=== PATIENT | male | born 1945 | race Caucasian/White ===

== ENCOUNTER 2020-02-13 11:36 | Outpatient (CLI) | payer MEDICARE, OTHER, SELFPAY ==
--- NOTE | 2020-02-13 11:42 | USCV_ITS ---
Jason Goodman Age: 74 Gender: M : 1945 Exam Date: 02/13/2020 12:06 Ordering Phys: Harvey Baires DO Technologist: Katja Carbajal [place] [facility] [place]: VISION PROBLEMS. PT UNSURE WHICH OR WHAT Risk Factors: Unknown Previous Vascular Surgery: None Right Brachial BP: / Left Brachial BP: / Right Left Velocity (cm/s) Spectral Plaque Velocity (cm/s) Spectral Plaque Syst/Diast Broadening Syst/Diast Broadening 70.60/ 15.40 Prox CCA 52.30 / 12.40 71.70/ 18.70 Hetro Mid CCA 59.70 / 19.90 Hetro 55.70/ 18.30 Hetro Distal CCA 56.40 / 21.60 Hetro 75.10/ 16.50 Hetro Prox ICA 66.50 / 13.90 Hetro 56.80/ 15.30 Hetro Mid ICA 50.00 / 14.60 55.60/ 19.80 Distal ICA 60.80 / 21.60 96.80 Hetro ECA 98.30 Hetro 1.05 ICA/CCA 1.11 Antegrade Vertebral Antegrade 47.90/ 13.40 cm/s 54.30/ 16.40 cm/s Tri Subclavian Bi 74.70 105.2 0 FINDINGS Moderate heterogeneous irregular plaques bilaterally at the bifurcations and proximal internal jugular arteries. Intimal thickening and minimal plaques in the common carotid arteries bilaterally. Antegrade flow in the vertebral arteries bilaterally. Normal Doppler flow velocities in the subclavian arteries bilaterally CONCLUSIONS Moderate heterogeneous irregular plaques bilaterally at the bifurcations and proximal internal jugular arteries suggestive of 16 to 49% stenosis. Intimal thickening and minimal plaques in the common carotid arteries bilaterally. No previous studies are available for comparison. Dr Lisa Black MD [facility] (Electronically Signed) Final Date: 13 Feb 2020 14:09 S
== END 2020-02-13 11:37 | disposition home or self-care (01) ==
PROVIDERS: Visit Provider Electrodiagnostic Medicine
DX: I65.23 Occlusion and stenosis of bilateral carotid arteries (principal); H53.10 Unspecified subjective visual disturbances; E03.9 Hypothyroidism, unspecified; E11.51 Type 2 diabetes mellitus with diabetic peripheral angiopathy without gangrene; E78.5 Hyperlipidemia, unspecified; I73.9 Peripheral vascular disease, unspecified; Z95.0 Presence of cardiac pacemaker; I25.10 Atherosclerotic heart disease of native coronary artery without angina pectoris; R01.1 Cardiac murmur, unspecified; F17.210 Nicotine dependence, cigarettes, uncomplicated
CPT/HCPCS: 93880

== ENCOUNTER 2023-01-19 13:51 | Outpatient (CLI) | payer OTHER, SELFPAY ==
--- NOTE | 2023-01-19 14:08 | USCV_ITS ---
Jason Goodman Age: 77 Gender: M : 1945 Exam Date: 01/19/2023 14:36 Ordering Phys: Shelby Stevens MD Technologist: JOSLYN [place] [facility] [place]: Bruit Risk Factors: Previous Vascular Surgery: Right Brachial BP: / Left Brachial BP: / Right Left Velocity (cm/s) Spectral Plaque Velocity (cm/s) Spectral Plaque Syst/Diast Broadening Syst/Diast Broadening 60.90/ 16.00 Prox CCA 74.90 / 17.70 72.10/ 17.10 Mid CCA 72.20 / 19.40 51.30/ 15.00 Distal CCA 105.60/ 26.40 54.90/ 16.40 Prox ICA 89.60 / 19.40 63.70/ 19.60 Mid ICA 70.20 / 23.60 71.90/ 26.50 Distal ICA 64.30 / 25.90 91.30 ECA 111.90 1.00 ICA/CCA 0.85 Antegrade Vertebral Antegrade 44.40/ 13.70 cm/s 51.70/ 24.60 cm/s Tri Subclavian Bi 86.30 63.00 CONCLUSIONS Right ICA stenosis <50%. Moderate calcified atheromatous plaque right carotid bulb/ICA. Left ICA stenosis <50%. Moderate calcified atheromatous plaque left carotid bulb/ICA. Normal antegrade Doppler flow noted in the right vertebral artery. Normal antegrade Doppler flow noted in the left vertebral artery. Sammy Pérez MD (Electronically Signed) Final Date: 19 January 2023 16:10 S
--- NOTE | 2023-01-19 14:08 | USR_ITS ---
PROCEDURE INFORMATION: Exam: US Duplex Lower Extremity Arteries Exam date and time: 01/19/2023 2:55 PM Age: 77 years old Clinical indication: Pain; Foot; Bilateral; Additional info: Claudication TECHNIQUE: Imaging protocol: Real-time ultrasound scan of the arteries of the bilateral lower extremities with 2-D crockett scale, color Doppler flow and spectral waveform analysis. Images documented and saved. COMPARISON: No relevant prior studies available. FINDINGS: Right iliac and common femoral artery: No occlusion or significant stenosis. Monophasic waveform. Right superficial femoral artery: No occlusion or significant stenosis. Monophasic waveform. Right popliteal artery: No occlusion or significant stenosis. Monophasic waveform. Right calf/foot arteries: No occlusion or significant stenosis in the visualized arteries. Monophasic waveforms. Dorsalis pedis artery is patent. Left iliac and common femoral artery: No occlusion or significant stenosis. Biphasic within the iliac artery and monophasic within the common femoral artery. Left superficial femoral artery: No occlusion or significant stenosis. Monophasic waveform. Left popliteal artery: No occlusion or significant stenosis. Monophasic waveform. Left calf/foot arteries: No occlusion or significant stenosis in the visualized arteries. Monophasic waveforms. Dorsalis pedis artery is patent. JAGUAR is 0.55 on the right and 0.56 on the left. US/[place] [id number] IMPRESSION: 1. Predominant monophasic arterial waveforms bilaterally suggesting significant runoff disease, without significant systolic velocity elevation to indicate hemodynamically significant focal stenosis without occlusion. 2. JAGUAR of 0.55 on the right and 0.56 on the left, which also suggest significant or severe runoff disease bilaterally.
--- NOTE | 2023-01-19 14:08 | CT_ITS ---
WS: [id number] CT HEAD TECHNIQUE: Noncontrast CT of the head obtained from the skullbase to the vertex. CLINICAL INFORMATION: MEMORY PROBLEMS COMPARISON: None. DLP: 1299.[address] scans at [facility] use at least one of these dose optimization techniques: automated e xposure control; mA and/or kV adjustment per patient size (includes targeted exams where dose is matc hed to clinical indication); or iterative reconstruction. FINDINGS: No evidence of intracranial hemorrhage or mass effect. Ventricular system and basal cisterns are morel nt. Mild small vessel changes with moderate parenchymal volume loss. No extra-axial fluid collections . Vascular calcification. Mastoid air cells are well aerated. Intracranial vascular calcification. Fluid within the paranasal s inuses. Air-fluid level in the RIGHT frontal sinus. CT/CT head wo con* [id number] IMPRESSION: 1. No evidence of intracranial hemorrhage or mass effect. 2. Mild small vessel changes with moderate parenchymal volume loss. Parenchyma l volume loss slightly progressed since 2019 3. Intracranial vascular calcification. 4. Paranasal sinusitis with air-fluid levels. 5. Mastoid air cells well aerated. 6. No acute intracranial findings.
== END 2023-01-19 13:52 | disposition home or self-care (01) ==
LOC: RAD 13:53
PROVIDERS: PCP Electrodiagnostic Medicine; Visit Provider Family Medicine
DX: I65.23 Occlusion and stenosis of bilateral carotid arteries (principal); I70.213 Atherosclerosis of native arteries of extremities with intermittent claudication, bilateral legs
CPT/HCPCS: 70450; 93880; 93925

== ENCOUNTER → 2023-04-12 15:00 | Outpatient (BNVA) | payer OTHER, SELFPAY | PROVIDERS: PCP Family Medicine; Visit Provider Thoracic Surgery (Cardiothoracic Vascular Surgery) | DX: I73.9 Peripheral vascular disease, unspecified (principal) | CPT/HCPCS: 99203 ==

== ENCOUNTER 2023-05-03 10:14 | Outpatient (CLI) | payer OTHER, SELFPAY ==
[2023-05-03] MEDS: iohexol 350 mg/mL 500 mL Btl (per mL) IV (10:30)
--- NOTE | 2023-05-03 10:30 | CTR_ITS ---
PROCEDURE INFORMATION: Exam: CTA Abdominal Aorta and Bilateral Lower Extremities (Run-off) With Contrast Exam date and time: 05/03/2023 10:56 AM Age: 78 years old Clinical indication: Bilat leg pain TECHNIQUE: Imaging protocol: Computed tomographic angiography of the of the abdominal aorta, pelvis and bilateral lower extremities with contrast. 3D rendering (Not supervised by radiologist): MIP and/or 3D reconstructed images were created by the technologist. Radiation optimization: All CT scans at this facility use at least one of these dose optimization techniques: automated exposure control; mA and/or kV adjustment per patient size (includes targeted exams where dose is matched to clinical indication); or iterative reconstruction. Contrast material: OMNI 350; Contrast volume: 100 ml; Contrast route: INTRAVENOUS (IV); REPORTING DATA: Count of CT and Cardiac NM exams in prior 12 months: This patient has received [address] and 0 known cardiac nuclear medicine studies in the 12 months prior to the current study. COMPARISON: CT chest wo con [id number] 01/10/2019 8:34 AM RADIATION DOSE METRICS: Total DLP (mGy-cm): 1078.31 FINDINGS: Aorta: There is severe aortic atherosclerotic disease. There is fusiform dilation of the infrarenal abdominal aorta measuring up to 3.3 cm diameter. No dissection or aortic luminal narrowing. Celiac trunk and mesenteric arteries: Moderate calcific plaque with less than 50% stenosis of the superior mesenteric artery origin. No significant stenosis at the celiac artery origin. Inferior mesenteric artery is patent. Renal arteries: There is a web-like stenosis at the origin of the right renal artery. The degree of stenosis cannot be accurately measured. The left renal artery demonstrates no stenosis. Right iliac arteries: Marked calcific plaque with near occlusion at the origin of the right common iliac artery. Marked calcific plaque with near occlusion at the origin of the right internal iliac artery. Moderate calcific plaque with multifocal less than 50% stenosis in the right external iliac artery. Right femoral/popliteal arteries: Moderate calcific plaque with less than 50% stenosis in the right common femoral artery. Right profundus femoris artery is patent. Less than 50% stenosis at the origin of the right superficial femoral artery. Extensive calcific plaque throughout the right superficial femoral artery with multifocal 50-60% stenosis. There is a short segment of greater than 70% stenosis in the distal superficial femoral artery. Just above the knee there is near occlusion of the distal superficial femoral artery. See series 4, image 760. There is severe calcific plaque with multifocal near occlusion of the right popliteal artery. Right infrapopliteal arteries: There is 50-60% stenosis of the right tibioperoneal trunk. There is severe calcific plaque in the anterior tibial artery limiting assessment of patency. Contrast is seen in the vessel distally and in the dorsalis pedis artery. The peroneal artery is patent. The posterior tibial artery is occluded. Left iliac arteries: Marked calcific plaque with greater than 70% stenosis of the left common iliac artery origin. Near occlusion at the origin of left internal iliac artery. Multifocal less than 50% stenosis in the left external iliac artery. Left femoral/popliteal arteries: Moderate calcific plaque with less than 50% stenosis of the left common femoral artery. Less than 50% stenosis at the origin of the left superficial femoral artery. Extensive calcific plaque in the superficial femoral artery with multifocal 50-60% stenosis proximally. There is multifocal greater than 70% stenosis in the distal superficial femoral artery and near occlusion just above the knee. The left profundus femoris artery is patent. Multifocal near occlusion of the left popliteal artery. Left infrapopliteal arteries: The left dorsalis pedis artery is patent. The anterior tibial artery is intermittently occluded. The posterior tibial artery is occluded. The peroneal artery is patent. Veins: The portal, splenic and superior mesenteric veins are patent. Lungs: Minimal subpleural reticular opacity and atelectasis in the lung bases. There is a calcified granuloma in the right middle lobe. Liver: The liver is normal. Gallbladder and bile ducts: The gallbladder is normal. There is no biliary dilation. Pancreas: The pancreas is unremarkable. Spleen: The spleen is unremarkable. Adrenal glands: The adrenal glands are unremarkable. Kidneys and ureters: There are simple cysts in the right kidney. There is no hydronephrosis or stones. The left kidney and ureter are unremarkable. Stomach and bowel: The stomach is decompressed, preventing meaningful evaluation of wall thickness. The small bowel is nondilated. The colon is unremarkable. Appendix: The appendix is normal. Urinary bladder: The urinary bladder is decompressed, preventing meaningful evaluation of wall thickness. Reproductive: The prostate and seminal vesicles are unremarkable. Intraperitoneal space: There is no free air or significant intraperitoneal free fluid. Lymph nodes: There is no lymphadenopathy in the retroperitoneum, mesentery, pelvis or inguinal regions. Bones/joints: There is mild degenerative disease in the lumbar spine. Prominent bilateral acetabular osteophytes. Pelvis and proximal femora are intact. Soft tissues: There are moderate-sized bilateral fat containing inguinal hernias. CT/CT angio abd aorta runof [id number] IMPRESSION: 1. Severe peripheral arterial atherosclerotic disease in the lower extremities bilaterally with near occlusion of both distal femoral and popliteal arteries at multiple sites. 2. Near occlusion at the origin of the right common iliac artery. 3. Greater than 70% stenosis at the origin of the left common iliac artery. 4. Severe infrapopliteal atherosclerotic disease bilaterally with occlusion of the left anterior and posterior tibial arteries and right posterior tibial artery with patent peroneal arteries bilaterally. 5. 3.3 cm fusiform infrarenal abdominal aortic aneurysm.Follow-up imaging in 3 years is recommended. 6. Web-like stenosis at the right renal artery origin. The degree of stenosis cannot be accurately measured. 7. Incidental findings above.
[2023-05-03 10:57] LABS: Blood Urea Nitrogen 8 mg/dL (8-23)
== END 2023-05-03 10:15 | disposition home or self-care (01) ==
PROVIDERS: PCP Family Medicine; Visit Provider Thoracic Surgery (Cardiothoracic Vascular Surgery)
DX: M79.606 Pain in leg, unspecified (principal)
CPT/HCPCS: 75635; 82565; 84520; Q9967

== ENCOUNTER → 2023-05-16 13:44 | Outpatient (BNVA) | payer OTHER, SELFPAY | PROVIDERS: PCP Family Medicine; Referring Provider Family Medicine; Visit Provider Dermatology | DX: L82.1 Other seborrheic keratosis (principal); L81.4 Other melanin hyperpigmentation; L57.8 Other skin changes due to chronic exposure to nonionizing radiation; L73.8 Other specified follicular disorders; L57.0 Actinic keratosis | CPT/HCPCS: 17000; 17003; 99203 ==

== ENCOUNTER → 2023-06-21 13:47 | Outpatient (BNVA) | payer OTHER, SELFPAY | PROVIDERS: PCP Family Medicine; Visit Provider Internal Medicine | DX: R07.9 Chest pain, unspecified (principal); Z95.0 Presence of cardiac pacemaker; E11.9 Type 2 diabetes mellitus without complications; Z95.1 Presence of aortocoronary bypass graft; I73.9 Peripheral vascular disease, unspecified; I27.20 Pulmonary hypertension, unspecified; I45.9 Conduction disorder, unspecified; F17.210 Nicotine dependence, cigarettes, uncomplicated | CPT/HCPCS: 93005; 99214 ==

== ENCOUNTER 2023-07-02 06:09 | Outpatient (CLI) | payer OTHER, SELFPAY ==
[2023-07-02] VITALS (12 sets, daily range): BP systolic 111–148; BP diastolic 52–79; PULSE 60–87; RESP 13–20; TEMP 36.8; O2SAT 90–96; BMI 30.1
--- NOTE | 2023-07-02 06:00 | XACV_ITS ---
Ht: 175 cm Wt: 93 kg BSA: 2.15 m2 Any Known Allergies: Penicillins Gender: Male : 1945 Exam Type: Invasive Peripheral Vascular Procedure(s): Procedure Description: Peripheral Cath Diagnostic Procedure Procedure Description: Abdominal aortic angiography Procedure Description: Lower extremities' angiography Exam Priority: Routine Abdominal Diagnostic Findings Distal abdominal aorta: Patent, aneurysmal. Lower Extremity Diagnostic Findings INDICATION: Severe bilateral lifestyle limiting claudication. Right lower extremity findings: Right common iliac artery is heavily calcified and severe 95% stenosis. Right external iliac artery is patent. Right internal iliac artery is patent. Right common femoral artery is patent. Distal right SFA has severe serial stenoses. Proximal popliteal artery has severe. 90% calcified stenosis. Distal popliteal artery is patent. Two-vessel runoff with patent peroneal artery and anterior tibial artery.. Left lower extremity findings: Left common iliac artery has calcified 80 % stenosis. Left external iliac artery is patent. Left internal iliac artery is patent. Left common femoral artery is patent. Has very high bifurcation of the profunda and SFA. SFA is patent. Distal SFA has severe, calcified 90%. Popliteal artery has severe 70-80% stenosis. Posterior tibial artery is occluded. Peroneal artery is patent. Distal anterior tibial artery is occluded. Conclusions Severe bilateral peripheral artery disease. We will have discussion with Dr Irizarry (surgeon) to plan surgical revascularization vs performing percutaneous revascularization of inflow and treat rest medically. Recommendations Aggressive risk factor modification. Smoking cessation recommended. Follow up visit in 7-10 days. Hemodynamic Data Phase:Rest AO : 131.0 / 55.0 ( 84.0 ) @ 9:32:00 AM 107.0 / 58.0 ( 80.0 ) @ 9:44:00 AM 124.0 / 51.0 ( 80.0 ) @ 9:48:00 AM Access Site Site: Left Femoral artery Sheath Size: 6 Fr Hemost... Method: Mynx Hemost... Success: Successful Procedure Details Findings Procedure Consent Obtained. Pre-Procedure Time Out. Identified patient by full name and date of as verbalized by the patient/guarantor. Does the consent match the physician's order: Yes. Accurate & Complete Informed Consent: Yes. Inpatient/Outpatient History & Physical on Chart: Yes. If H&P is completed, is and addenduem needed: No. Visualize and Verify Site with Patient/Guarantor: N/A. Relevant Radiology Images available: Yes. The risks, benefits, and alternatives of sedation and/or procedure were discussed by physician. The patient agrees to continue. Procedure started. Correct patient, site and procedure confirmed by cath team. Current diagnosis: PVD. PERRLA. Strong, equal hand car wash attendant bilaterally. Lungs clear x 5 lobes. IV Site on Arrival: 20 gauge in the left anticubital. IV Fluids: 0.9% NaCl at KVO. 0 mL infused prior to labor relations officer. Pre Procedural Pulses: bilateral dorsalis pedis was 1+. Pre Procedural Pulses: bilateral posterior tibial was 1+. Oxygen started at 2liters/min via nasal canula. bilateral groins was prepped with chloroprep then draped in the usual sterile fashion. Physician notified. Baseline sample Acquired. HR: 65 BPM. Patient's daughter in CPRU room #4. Dr. Novak will update at the completion of the procedure. Equipment: 6F - Femoral. Cardiac Cath Pack. ACIST Manifold Kit Model BT 2000. Heparinized Saline (2 units/mL), 1000 mL bag. Kit, Micropuncture. Physician arrived. Physician scrubbed in. Immediate Pre-Procedure Time Out. Correct Patient: Yes; Correct Procedure: Yes; Correct Site: Yes; Correct Patient Position: Yes; Correct Supplies: Yes Dried Flammable Prep: Yes; Blood Products Available: N/A;. Lidocaine 1% infiltrated to the left groin. Arterial access obtained with micropuncture set with Ultrasound guidance. A 5Fr UF catheter in over the glidewire. Pigtail postioned above the bifurcation of the iliacs. Aortagram performed @ 10 mL/sec for a total of 30 mL. Pigtail postioned above the bifurcation of the iliacs. Aortagram performed @ 10 mL/sec for a total of 20 mL in DSA to better visualize the iliacs. Glidewire in through the UF. Glidewire out. Right common iliac selected and arteriogram with runoff performed @ 10 mL/sec for a total of 30 mL. Right common iliac selected and arteriogram with runoff performed @ 10 mL/sec for a total of 30 mL. Right common iliac selected and arteriogram with runoff performed @ 10 mL/sec for a total of 30 mL in DSA. UF Catheter removed over the standard wire. Sheath injected in Left common femoral artery and runoff performed. A Left femoral angiogram was performed to determine safe placement of closure device. A Mynx was successful obtaining hemostatsis at the Left Femoral artery insertion site. ot# [id number]. Exp. 2025-06-07. No signs or symptoms of hematoma noted. Sterile dressing applied per usual sterile fashion. Post Procedure: Pulses reassessed and unchanged. PERRLA. Strong, equal hand car wash attendant bilaterally. No VTE prophylaxis required. Medication's Wasted: Heparin = 1000 Units. Medication's Wasted: Other = Versed 1 mg. Medication's Wasted: Other = Fentanyl 50 mcg. Total IV fluids: 54 mL. Post-op diagnosis: Severe bilateral PVD. Complications: none. Estimated blood loss: 5mL-10mL. Responsiveness - Normal response to verbal stimuli; alert and oriented, PERRLA. Airway - Unaffected, no intervention required; spontaneous ventilation. Circulation: W/N/L, pulses unchanged. Nausea/Vomiting: No. Procedure completed. Patient transferred by bed to CPRU. Vital chart was stopped. Procedure Medications Start: 8:17 AM Stop: 8:17 AM Medication: Versed Amount: 1 mg Route: I.V. Start: 8:17 AM Stop: 8:17 AM Medication: Fentanyl Amount: 50 mcg Route: I.V. I, the attending physician, have reviewed and verified all procedure medications. Yes, all medications given per verbal order History/Risk Factors Hypertension: No Dyslipidemia: No Peripheral Arterial Disease (PAD): Yes Obesity: Yes Renal Disease: No Tobacco Use: Current/Recent(w/in 1 year) Prior Interventions PCI: No CABG: No Valve Surgery: No Report Signatures Finalized by Jorge Novak MD on 07/08/2023 11:07 AM
[2023-07-02] MEDS: diphenhydrAMINE 50 mg Capsule PO (06:30)
[2023-07-02 06:56] LABS: Basophils # 0.1 10^3/uL (0.0-0.1); Basophils % 1.2 %; Eosinophils # 0.2 10^3/uL (0.0-0.8); Eosinophils % 4.1 %; Hematocrit 38.5 % (37-53); Mean Corpuscular HGB Conc 31.4 g/dL (30-55); Mean Corpuscular Hemoglobin 26.5 pg (27-33); Mean Corpuscular Volume 84.2 fl (82-101); Mean Platelet Volume 9.8 fL (7.4-10.4); Monocytes # 0.6 10^3/uL (0.2-0.9); Monocytes % 10.2 %; Neutrophils % 67.1 %; Nucleated Red Blood Cells % 0 %; Platelet Count 189 10^3/cmm (157-399); Red Blood Count 4.57 10^6/uL (3.85-5.65); Red Cell Distribution Width 17.7 % (12.1-15.1); White Blood Count 5.66 10^3/uL (3.29-11.43)
[2023-07-02 07:05] LABS: Glucose Point of Care 161 mg/dL (70-110)
[2023-07-02 07:20] LABS: Anion Gap 13.8 (5-19); Blood Urea Nitrogen 16 mg/dL (8-23); Calcium 8.5 mg/dL (8.5-10.5); Carbon Dioxide 25 mmol/L (22-29); Chloride 104 mmol/L (98-107); Glucose 154 mg/dL (65-115); Osmolality Calculated 292 mOsm/kg (285-295); Potassium 3.8 mmol/L (3.5-5.1); Sodium 139 mmol/L (136-145)
--- NOTE | 2023-07-02 08:11 | W.PM.OPSUD ---
Surgery/Procedure H&P Update DATE OF PROCEDURE: July 02, 2023 DATE H&P PERFORMED: 06/21/23 H&P UPDATE INFORMATION: I have reviewed H&P completed within last 30 days, I have examined patient prior to procedure and No changes to prior documentation PREOP DIAGNOSIS: Severe bilateral lifestyle limiting claudication PRIMARY INDICATION FOR PROCEDURE: Severe bilateral lifestyle limiting claudication PLANNED PROCEDURE: Operation Date: 07/02/23 07:00 Proposed Procedures p Periph Angiogram 57963,I73.9(Not Applicable) - Jorge Novak M.D Possible intervention PATIENT REASSESSED PRIOR TO SEDATION, WITH NO CHANGE NOTED: Yes PHYSICAL EXAM: alert, oriented x 3, clear to auscultation bilaterally and regular rate & rhythm AIRWAY EVAL/ANESTHESIA PLAN: normal airway, ASA III, Local Anesthesia, Risks, benefits & alternatives of sedation and/or procedure discussed and Patient agrees to continue as planned ADDITIONAL INFORMATION: Moderate sedation
--- NOTE | 2023-07-02 09:05 | SUR.PHASEI ---
Addendum entered by Sandro Francisco RN 07/02/23 09:27: Access is left femoral not the right side. Original Note: POST CATH NOTE Received patient from the medical laboratory specialist. Patient has a dressing to the right groin. Sheath removed in cath and closed with MYNX closure device. Site is hemostatic with no s/s of active bleeding. VSS and assessments per flowsheet. Call light in reach. MD in to discuss findings with patient and family. Verbal post cath instructions went over with the patient/family. They understood well. Informed to call for needs.
--- NOTE | 2023-07-02 09:05 | SUR.PHASEI ---
POST OF IV FLUIDS SET AT 100 ML/HR ORDERED POST CATH. IVF is 0.9% NS.
--- NOTE | 2023-07-02 10:23 | PC.NURSE ---
Patient comes from dental laboratory supervisor at 0957. Left peripheral site is dry and intact. No hematoma noted.
== END 2023-07-02 17:16 | disposition home or self-care (01) ==
LOC: CCL 06:10 → CSU 13:47
PROVIDERS: PCP Family Medicine; Visit Provider Internal Medicine
DX: I70.213 Atherosclerosis of native arteries of extremities with intermittent claudication, bilateral legs (principal); I25.10 Atherosclerotic heart disease of native coronary artery without angina pectoris; Z95.1 Presence of aortocoronary bypass graft; F17.210 Nicotine dependence, cigarettes, uncomplicated; E11.9 Type 2 diabetes mellitus without complications; Z79.84 Long term (current) use of oral hypoglycemic drugs; Z82.49 Family history of ischemic heart disease and other diseases of the circulatory system; E66.9 Obesity, unspecified; Z68.30 Body mass index [BMI] 30.0-30.9, adult
CPT/HCPCS: 36415; 36416; 75625; 75716; 80048; 82962; 85025; 96365; 99152; 99153; C1760; C1769; C1887; C1894; G0378; J1644; J2250; J3010; J7030; Q0163; Q9967

== ENCOUNTER 2023-07-23 06:02 | Outpatient (CLI) | payer OTHER, SELFPAY ==
[2023-07-23] VITALS (68 sets, daily range): BP systolic 80–122; BP diastolic 46–80; PULSE 60–108; RESP 2–21; TEMP 36.4–37; O2SAT 86–95; BMI 30.1
[2023-07-23 06:34] LABS: Glucose Point of Care 165 mg/dL (70-110)
[2023-07-23] MEDS: diphenhydrAMINE 50 mg Capsule PO (06:45)
[2023-07-23 06:47] LABS: Basophils # 0.1 10^3/uL (0.0-0.1); Basophils % 0.9 %; Eosinophils # 0.2 10^3/uL (0.0-0.8); Eosinophils % 3.2 %; Hematocrit 38.5 % (37-53); Lymphocytes # 1.1 10^3/uL (0.8-4.8); Mean Corpuscular HGB Conc 30.9 g/dL (30-55); Mean Corpuscular Hemoglobin 27.4 pg (27-33); Mean Corpuscular Volume 88.7 fl (82-101); Mean Platelet Volume 9.9 fL (7.4-10.4); Monocytes # 0.5 10^3/uL (0.2-0.9); Monocytes % 7.7 %; Neutrophils # 4.98 10^3/uL (1.8-7.7); Neutrophils % 71.9 %; Nucleated Red Blood Cells % 0 %; Platelet Count 224 10^3/cmm (157-399); Red Blood Count 4.34 10^6/uL (3.85-5.65); White Blood Count 6.92 10^3/uL (3.29-11.43)
--- NOTE | 2023-07-23 07:00 | XACV_ITS ---
Exam Room: [facility] Ht: 175 cm Wt: 93 kg BSA: 2.15 m2 Gender: Male : 1945 Any Known Allergies: Penicillins Exam Priority: Routine Procedure(s): Procedure Description: Diagnostic procedure Procedure Description: Peripheral Cath Diagnostic Procedure Procedure Description: Iliac arterial aortic angiography Procedure Description: Peripheral vascular Intervention Procedure Description: PV Balloon Procedure Description: PV Stent Procedure Description: Miscellaneous Procedure Description: ACT Abdominal Diagnostic Findings Distal abdominal aorta is patent. Lower Extremity Diagnostic Findings This is a staged procedure for bilateral severe common iliac artery stenosis revascularization. Left Common Iliac Artery: Severe 80% stenosis. Right Common Iliac Artery: Severe heavily calcified, 95% stenosis. For full diagnostic report, please refer to procedure from 07/02/2023. INDICATION: Severe lifestyle limiting claudication. Lower Extremity Interventional Findings PROCEDURE DETAIL: We obtained bilateral common femoral artery access. IV heparin was administered to maintain anticoagulation. We crossed the severe right common iliac artery stenosis with a command wire and performed intravascular lithotripsy with a 8.0 shockwave balloon. This was followed by performing shockwave lithotripsy of the left common iliac artery. We then performed simultanoues kissing stent placement in the bilateral iliac arteries. These were 8.0x37mm Lifestream covered stents. On the right side there was some underexpansion of the stent and we post dilated it with a 10.0x40mm [place] balloon. At this time final angiogram showed excellent stent expansion and no residual stenosis. Patient left the culture media laboratory assistant in a stable condition. Left Common Iliac Artery: 80% stenosis treated with Shockwave M5 8.0mm x 125cm and Bard LifeStream 8.0mm x 37mm Balloon Expandable Vascular Covered Stent. Right Common Iliac Artery: 95% stenosis treated with Shockwave M5 8.0mm x 135cm, Bard LifeStream 8.0mm x 37mm Balloon Expandable Vascular Covered Stent, and AB [place] 35 ENROLLMENT REPRESENTATIVE Catheter [id number] OTW. Conclusions Severe bilateral common iliac artery stenoses s/p revascularization with intravascular lithotripsy using shockwave balloon and kissing covered stent placement in right and left common iliac arteries. Left common iliac artery was treated with a Balloon, and Stent. Right common iliac artery was treated with a Balloon, Stent, and Balloon. There is significant bilateral lower extremity disease. Left Common Iliac Artery was treated with Balloon and Stent. Right Common Iliac Artery was treated with two Balloon and Stent. Recommendations Dual antiplatelet therapy with aspirin and plavix. Outpatient cardiology follow up in 2 weeks. Pressures Phase:Rest AO : 143 / 72 ( 97 ) @ 9:09:00 AM 84 / 39 ( 54 ) @ 9:28:00 AM 79 / 34 ( 53 ) @ 9:40:00 AM 93 / 45 ( 64 ) @ 9:49:00 AM Hemodynamic Data Phase:Rest AO : 143.0 / 72.0 ( 97.0 ) @ 9:09:00 AM 84.0 / 39.0 ( 54.0 ) @ 9:28:00 AM 79.0 / 34.0 ( 53.0 ) @ 9:40:00 AM 93.0 / 45.0 ( 64.0 ) @ 9:49:00 AM Clinical Evaluation EBL: 5mL-10mL Procedural Details Procedure Consent Obtained. Pre-Procedure Time Out. Identified patient by full name and date of as verbalized by the patient/guarantor. Does the consent match the physician's order: Yes. Accurate & Complete Informed Consent: Yes. Inpatient/Outpatient History & Physical on Chart: Yes. If H&P is completed, is and addenduem needed: Yes; If yes, is the addendum complete: Yes. Visualize and Verify Site with Patient/Guarantor: N/A. Relevant Radiology Images available: Yes. The risks, benefits, and alternatives of sedation and/or procedure were discussed by physician. The patient agrees to continue. Current diagnosis: PVD. PERRLA. Strong, equal hand cement mixer driver bilaterally. Lungs clear x 5 lobes. IV Site on Arrival: 20 gauge in the left forearm. IV Fluids: 0.9% NaCl at KVO. 0 mL infused prior to culture media laboratory assistant. Pre Procedural Pulses: bilateral dorsalis pedis was Absent. Pre Procedural Pulses: bilateral posterior tibial was Absent. Pre Procedural Pulses: bilateral radial was 2+. Oxygen started at 2liters/min via nasal canula. bilateral groins was prepped with chloroprep then draped in the usual sterile fashion. Procedure started. Correct patient, site and procedure confirmed by cath team. Physician notified. Baseline sample Acquired. HR: 81 BPM. Patient's family in CPRU room #3. Dr. Novak will update at the completion of the procedure. Equipment: 6F - Femoral. Cardiac Cath Pack. ACIST Manifold Kit Model BT 2000. Heparinized Saline (2 units/mL), 1000 mL bag. Kit, Micropuncture X 2. 7 fr sheath X 2. Physician arrived. Physician scrubbed in. Immediate Pre-Procedure Time Out. Correct Patient: Yes; Correct Procedure: Yes; Correct Site: Yes; Correct Patient Position: Yes; Correct Supplies: Yes; Dried Flammable Prep: Yes; Blood Products Available: N/A;. Lidocaine 1% infiltrated to the right groin. Arterial access obtained with micropuncture set. Lidocaine 1% infiltrated to the left groin. Arterial access obtained with micropuncture set. Side port of sheath attached to tranducer for arterial blood pressures as the NIPB is not working properly. A 5Fr UF catheter in OTW on the left. Pigtail postioned above the bifurcation of the iliacs. Aortagram performed @ 10 mL/sec for a total of 30 mL. 0.035 260cm stiff angled glidewire in through the UF catheter. Catheter removed over the glide wire. Command 0.014 x 300cm guidewire in through the UF catheteron the left. Add inventory: Endoflator x 2. UF catheter out OTW. Command 0.014 x 300cm guidewire in through the sheath on the right. Inflation number : 1 A Shockwave M5 8.0mm x 135cm was prepped and advanced across the Common Iliac, Right , then inflated to 4 MALCOM for 0:24 seconds. Inflation number: 2 The Shockwave M5 8.0mm x 135cm was reinflated across the Common Iliac, Right, to 4 MALCOM for 0:28 seconds. Inflation number: 3 The Shockwave M5 8.0mm x 135cm was reinflated across the Common Iliac, Right, to 4 MALCOM for 0:28 seconds. Inflation number: 4 The Shockwave M5 8.0mm x 135cm was reinflated across the Common Iliac, Right, to 4 MALCOM for 0:27 seconds. Inflation number: 5 The Shockwave M5 8.0mm x 135cm was reinflated across the Common Iliac, Right, to 4 MALCOM for 0:29 seconds. Shockwave balloon out. Inflation number : 1 A Shockwave M5 8.0mm x 125cm was prepped and advanced across the Common Iliac, Left , then inflated to 4 MALCOM for 0:29 seconds. Inflation number: 2 The Shockwave M5 8.0mm x 125cm was reinflated across the Common Iliac, Left, to 0 MALCOM for 0:24 seconds. Inflation number: 3 The Shockwave M5 8.0mm x 125cm was reinflated across the Common Iliac, Left, to 4 MALCOM for 0:26 seconds. Shockwave balloon out. ACT drawn. Results 210 seconds. Therapeutic limits - pre-heparin administration 90-150 seconds and monitoring heparin during a vascular procedure >250 seconds. Inflation Number : 6 A Bard LifeStream 8.0mm x 37mm Balloon Expandable Vascular Covered Stent -Lot Number# [id number] was prepped and advanced across the Common Iliac, Right. The stent was deployed at 12 MALCOM for 1:30 seconds. Exp. 2025-07-07. Inflation Number : 4 A Bard LifeStream 8.0mm x 37mm Balloon Expandable Vascular Covered Stent -Lot Number# [id number] was prepped and advanced across the Common Iliac, Left. The stent was deployed at 12 MALCOM for 1:30 seconds. Exp. 2025-07-07. Bilateral stent balloons out. A 5Fr UF catheter in OTW on the left. Command wire out on the left. Pigtail postioned above the bifurcation of the iliacs. Aortagram performed @ 10 mL/sec for a total of 30 mL in DSA. Pigtail postioned above the bifurcation of the iliacs. Aortagram performed @ 10 mL/sec for a total of 20 mL. Inflation number : 7 A AB [place] 35 ENROLLMENT REPRESENTATIVE Catheter [id number] OTW was prepped and advanced across the Common Iliac, Right , then inflated to 4 MALCOM for 1:04 seconds. Balloon out. Pigtail postioned above the bifurcation of the iliacs. Aortagram performed @ 10 mL/sec for a total of 20 mL. Pigtail postioned above the bifurcation of the iliacs. Aortagram performed @ 10 mL/sec for a total of 20 mL in DSA. Command wire out on the right. ACT drawn. Results 285 seconds. Therapeutic limits - pre-heparin administration 90-150 seconds and monitoring heparin during a vascular procedure >250 seconds. UF catheter out OTW on the left. A Left femoral angiogram was performed to determine safe placement of closure device. Dr. Novak scrubbed out. A Suture was successful obtaining hemostatsis at the Right Femoral artery insertion site. A Suture was successful obtaining hemostatsis at the Left Femoral artery insertion site. Sheath(s) sutured into position with 2-0 silk and sterile 4x4's and Op-site applied over the site. No oozing or signs and symptoms of hematoma noted. Arterial sheath x 2 flushed and connected to tranducer and pressure bag with heparinized saline. PERRLA. Strong, equal hand cement mixer driver bilaterally. No VTE prophylaxis required. Medication's Wasted: Heparin = 3000 units. Total IV fluids: 335 mL. Complications: none. Post-op diagnosis: Bilateral Common Iliac disease s/p Peripheral Lithotripsy and covered stents. Estimated blood loss: 5mL-10mL. Responsiveness - Normal response to verbal stimuli; alert and oriented, PERRLA. Airway - Unaffected, no intervention required; spontaneous ventilation. Circulation: W/N/L, pulses unchanged. Nausea/Vomiting: No. Procedure completed. Patient transferred by bed to CPRU. Vital chart was stopped. Access Site Site: Right Femoral artery Sheath Size: 7 Fr Hemostasis Method: Suture Hemostasis Success: Successful Site: Left Femoral artery Sheath Size: 7 Fr Hemostasis Method: Suture Hemostasis Success: Successful Procedure Medications Start: 7:59 AM Stop: 7:59 AM Medication: 0.9% Saline Amount: 250 ml Route: I.V. bolus Start: 8:10 AM Stop: 8:10 AM Medication: Versed Amount: 1 mg Route: I.V. Start: 8:10 AM Stop: 8:10 AM Medication: Fentanyl Amount: 50 mcg Route: I.V. Start: 8:13 AM Stop: 8:13 AM Medication: Versed Amount: 1 mg Route: I.V. Start: 8:13 AM Stop: 8:13 AM Medication: Fentanyl Amount: 50 mcg Route: I.V. Start: 8:28 AM Stop: 8:28 AM Medication: Heparin Amount: 6000 units Route: I.V. Start: 8:30 AM Stop: 8:30 AM Medication: Heparin Amount: 1000 units Route: I.V. Start: 8:48 AM Stop: 8:48 AM Medication: Heparin Amount: 2000 units Route: I.V. Start: 9:12 AM Stop: 9:12 AM Medication: Plavix Amount: 600 mg Route: P.O. I, the attending physician, have reviewed and verified all procedure medications. Yes, all medications given per verbal order History/Risk Factors Hypertension: No Dyslipidemia: No Peripheral Arterial Disease (PAD): Yes Myocardial Infarction (CT): No Obesity: No Renal Disease: No Tobacco Use: Current/Recent(w/in 1 year) Prior Interventions PCI: Yes CABG: Yes Valve Surgery: No Report Signatures Finalized by Jorge Novak MD on 07/29/2023 02:05 PM
[2023-07-23 07:01] LABS: Anion Gap 15.2 (5-19); Blood Urea Nitrogen 21 mg/dL (8-23); Calcium 8.7 mg/dL (8.5-10.5); Carbon Dioxide 21 mmol/L (22-29); Chloride 105 mmol/L (98-107); Glucose 173 mg/dL (65-115); Osmolality Calculated 291 mOsm/kg (285-295); Potassium 4.2 mmol/L (3.5-5.1); Sodium 137 mmol/L (136-145)
--- NOTE | 2023-07-23 07:38 | USCV_ITS ---
Jason Goodman Age: 78 Gender: M : 1945 Exam Date: 07/23/2023 07:58 Ordering Phys: Jorge Novak M.D ([email or web address]) Technologist: LISA Exam Location: [facility] – [place] Indication: bilat vascular access Findings bilat electrical engineer access achieved Conclusions US utilized for vascular access electrical engineer Sammy Pérez MD (Electronically Signed) Final Date: 23 July 2023 12:04 S
--- NOTE | 2023-07-23 07:43 | W.PM.OPSFHP ---
Same Day Surgery H&P Indication for Procedure/HPI DATE OF PROCEDURE: July 23, 2023 CHIEF COMPLAINT/INDICATIONFOR SURGICAL PROCEDURE: Severe bilateral lifestyle limiting claudication PREOP DIAGNOSIS: Severe bilateral lifestyle limiting claudication PLANNED PROCEDURE: Operation Date: 07/23/23 07:00 Proposed Procedures p Peripheral Angiogram 54277,I73.9(Not Applicable) - Jorge Novak M.D Peripheral intervention 78-year-old man with past medical history of peripheral artery disease, diabetes, hypertension who has been having severe lifestyle limiting claudication symptoms mostly on the right side however the left side also significant disease. He underwent peripheral angiogram recently that showed extensive PAD. After discussion with cardiovascular surgery colleague, Dr Irizarry, decision made to proceed with intervention of bilateral iliac disease and treat rest medically at this time. If symptoms donot improve, will plan on further intervention Medications/Allergies* Home Medications Medication Instructions Recorded Confirmed Type albuterol sulfate 90 mcg/actuation 1 puff inhalation QID PRN Allergy 04/12/23 07/23/23 History aerosol inhaler Symptoms alogliptin 25 mg tablet 25 mg PO DAILY 04/12/23 07/20/23 History aspirin 325 mg tablet 325 mg PO DAILY 04/12/23 07/20/23 History cholecalciferol (vitamin D3) 50 50 mcg PO DAILY 04/12/23 07/20/23 History mcg (2,000 unit) capsule cilostazol 100 mg tablet 100 mg PO BID 04/12/23 07/20/23 History ferrous gluconate 240 mg (27 mg 240 mg PO DAILY 04/12/23 07/23/23 History iron) tablet glipizide 10 mg tablet 10 mg PO TID 04/12/23 07/23/23 History ipratropium bromide 17 1 puff inhalation QID 04/12/23 07/23/23 History mcg/actuation HFA aerosol inhaler levothyroxine 100 mcg capsule 100 mcg PO DAILY 04/12/23 07/20/23 History lisinopril 20 mg tablet 20 mg PO DAILY 04/12/23 07/20/23 History metformin 500 mg tablet 500 mg PO BID 04/12/23 07/23/23 History metoprolol tartrate 50 mg tablet 50 mg PO BID 04/12/23 07/20/23 History omega 3-sfn-ggy-fish oil 300 1 cap PO BID 04/12/23 07/23/23 History mg-1,000 mg capsule (Fish Oil) rosuvastatin 20 mg tablet 20 mg PO DAILY 04/12/23 07/23/23 History sertraline 100 mg tablet 100 mg PO DAILY 04/12/23 07/20/23 History Allergies/Adverse Reactions Allergy/AdvReac Type Severity Reaction Status Date / Time pencillin Allergy Intermediate ALGY-Rash Uncoded 07/23/23 06:51 Current Medications: Generic Name Dose Route Start Last Admin Trade Name Abelardo PRN Reason Stop Dose Admin Sodium Chloride 1,000 mls @ 50 mls/hr 07/23/23 06:00 07/23/23 06:50 Sodium Chloride 0.9% IV 07/24/23 01:59 Not Given .Q20H ONE Pertinent History/Comorbid Conditions* Medical History (Updated 06/21/23 @ 14:39 by Jorge Novak M.D) Diabetes mellitus Surgical History (Updated 06/21/23 @ 14:39 by Jorge Novak M.D) Hx of CABG Family History (Updated 04/12/23 @ 15:41 by Bre Lewis LPN) CAD (coronary artery disease) Father Hypertension Denies family history of Diabetes Cancer Stroke Social History Smoking and tobacco/nicotine status: current every day tobacco/nicotine user cigarettes Packs smoked per day: 2 Years cigarettes smoked: 65 Alcohol intake: former Substance/Drug Use: never Lives independently: Yes Household members: none Housing: House Marital status: / Number of children: 3 Pets and animals: No Pertinent Exam Findings alert, oriented x 3, clear to auscultation bilaterally and regular rate & rhythm Pulses are weak bilaterally Conscious Sedation Assessment PATIENT ASSESSED PRIOR TO SEDATION, WITH NO CHANGE NOTED: Yes AIRWAY EVAL/ANESTHESIA PLAN: normal airway, see other exam findings, ASA III, Local Anesthesia, Risks, benefits & alternatives of sedation and/or procedure discussed and Patient agrees to continue as planned ADDITIONAL INFORMATION: Moderate sedation Recommendations Surgery/Procedure today (Peripheral angiogram/ Bilateral iliac artery intervention) Coding Level of Care Code Acute Code for Chg Fwd Diagnoses
--- NOTE | 2023-07-23 09:20 | SUR.PHASEI ---
IV 0.9% NS AT 75 ML/HR POST CATH ORDERED.
--- NOTE | 2023-07-23 09:20 | SUR.PHASEI ---
POST CATH NOTE Patient received from veterinarian laboratory animal care. Status post Peripheral Angiogram. Patient has bilateral [address] sheath[address] in place. Both are hooked up to pressure bags. Sites are hemostatic and have no hematoma formation noted. Verbal post cath instructions went over with the patient. They understood well. VITAL AND ASSESSMENTS PER FLOWSHEETS. Call Lights in reach. Informed to call for needs.
[2023-07-23] MEDS: sodium chloride 0.9% 1,000 ML 100 ML IV ×2 (12:55→22:46)
[2023-07-23] MEDS: insulin lispro 100 unit/1 mL SUBCUT ×2 (12:55→22:44)
[2023-07-23 13:03] LABS: Glucose Point of Care 151 mg/dL (70-110)
[2023-07-23 14:54] LABS: Partial Thromboplastin Time 32.1 SECONDS (23.9-36.7)
[2023-07-23] MEDS: metoprolol tartrate 50 mg Tablet PO (18:02)
[2023-07-23] MEDS: acetaminophen 325 mg Tablet 650 MG PO (18:02)
[2023-07-23] MEDS: cilostazol 100 mg Tablet PO (18:02)
--- NOTE | 2023-07-23 18:31 | PC.NURSE ---
Patient comes to [facility] with bilateral arterial groining sheaths. Provider requested that his left sheath be pulled first. The left arterial sheath is pulled at 1557 with immediate control. Homeostasis at 1557. Manual pressure is held x 20 minutes. A 2 x 2 and tegaderm is applied. The right sheath is pulled at 1625 with homeostasis at 1626. Manual pressure is held x 20 minutes. A 2 x 2 and tegaderm is applied. Vitals were stable throughout and no pain. Patient tolerated well.
--- NOTE | 2023-07-23 20:27 | PC.NURSE ---
Called and made aware of patients SBP in the 80s, patient is asymptomatic. Per continue IV fluids through night and continue to monitor. IF BP does not improve by 10pm recall and made aware.
[2023-07-23 21:57] LABS: Glucose Point of Care 157 mg/dL (70-110)
[2023-07-24] VITALS (8 sets, daily range): BP systolic 92–115; BP diastolic 48–57; PULSE 62–95; RESP 7–18; TEMP 36.5–36.6; O2SAT 90–94
[2023-07-24 05:06] LABS: Basophils # 0.1 10^3/uL (0.0-0.1); Basophils % 0.9 %; Eosinophils # 0.2 10^3/uL (0.0-0.8); Eosinophils % 3.1 %; Lymphocytes # 0.9 10^3/uL (0.8-4.8); Lymphocytes % 15.3 %; Mean Corpuscular HGB Conc 30.9 g/dL (30-55); Mean Corpuscular Hemoglobin 27.3 pg (27-33); Mean Corpuscular Volume 88.5 fl (82-101); Mean Platelet Volume 10.1 fL (7.4-10.4); Monocytes # 0.5 10^3/uL (0.2-0.9); Monocytes % 8.7 %; Neutrophils # 3.98 10^3/uL (1.8-7.7); Neutrophils % 71.8 %; Nucleated Red Blood Cells % 0 %; Platelet Count 182 10^3/cmm (157-399); Red Blood Count 3.84 10^6/uL (3.85-5.65); Red Cell Distribution Width 21.7 % (12.1-15.1); White Blood Count 5.54 10^3/uL (3.29-11.43)
[2023-07-24 05:30] LABS: Anion Gap 13.4 (5-19); Blood Urea Nitrogen 15 mg/dL (8-23); Calcium 7.9 mg/dL (8.5-10.5); Carbon Dioxide 21 mmol/L (22-29); Chloride 108 mmol/L (98-107); Glucose 85 mg/dL (65-115); Osmolality Calculated 286 mOsm/kg (285-295); Potassium 4.4 mmol/L (3.5-5.1); Sodium 138 mmol/L (136-145)
[2023-07-24 06:33] LABS: Glucose Point of Care 157 mg/dL (70-110)
--- NOTE | 2023-07-24 07:54 | PM.DCS ---
Discharge Providers Date of Admission: 07/23/2023 Date of Discharge: July 24, 2023 Attending Provider at Discharge: Jorge Novak M.D Primary Care Provider: Shelby Stevens MD Reason for Visit Reason for Visit: i73.9 Brief History: 78-year-old man with past medical history of diabetes, hypertension, hyperlipidemia who has been having severe lifestyle limiting claudication. Peripheral angiogram was performed last month and after discussion with vascular surgery, plan for intervention of bilateral common iliac arteries. Hospital Course Hospital Course Patient underwent successful revascularization of bilateral common iliac arteries with shockwave intravascular lithotripsy and covered stent placement x 2. He was observed in the hospital overnight and was discharged home in a stable condition on aspirin and Plavix Physical Exam Narrative: GENERAL: Patient is alert, awake and oriented x3. [] NECK: No jugular vein distension. [] HEENT: No cyanosis. No icterus. No pallor. [] HEART: Regular S1 and S2. No murmur, rub or gallop. [] LUNGS: Clear to auscultate bilaterally. [] CENTRAL NERVOUS SYSTEM: Grossly nonfocal. [] EXTREMITIES: Lower extremities with no edema. Feet are warm. Pulses are weak Discharge Data Studies Completed and Pending Completed Studies During Hospitalization Category Date Time Status CV guidevascular GOVERNMENT GAUGER ONLY Stat Ultrasound 07/23/23 07:38 Completed Pending at discharge Category Date Time Status GOVERNMENT GAUGER request for service Routine Exams 07/23/23 07:00 Taken Laboratory Results WBC 5.54 10^3/uL (3.29-11.43) 07/24/23 04:41 RBC 3.84 10^6/uL (3.85-5.65) L 07/24/23 04:41 Hgb 10.50 g/dL (11.27-16.99) L 07/24/23 04:41 Hct 34.0 % (37-53) L 07/24/23 04:41 MCV 88.5 fl (82-101) 07/24/23 04:41 MCH 27.3 pg (27-33) 07/24/23 04:41 MCHC 30.9 g/dL (30-55) 07/24/23 04:41 RDW 21.7 % (12.1-15.1) H 07/24/23 04:41 Plt Count 182 10^3/cmm (157-399) 07/24/23 04:41 MPV 10.1 fL (7.4-10.4) 07/24/23 04:41 Neut % (Auto) 71.8 % 07/24/23 04:41 Lymph % (Auto) 15.3 % 07/24/23 04:41 [place] % (Auto) 8.7 % 07/24/23 04:41 Eos % (Auto) 3.1 % 07/24/23 04:41 Baso % (Auto) 0.9 % 07/24/23 04:41 Neut # (Auto) 3.98 10^3/uL (1.8-7.7) 07/24/23 04:41 Lymph # (Auto) 0.9 10^3/uL (0.8-4.8) 07/24/23 04:41 [place] # (Auto) 0.5 10^3/uL (0.2-0.9) 07/24/23 04:41 Eos # (Auto) 0.2 10^3/uL (0.0-0.8) 07/24/23 04:41 Baso # (Auto) 0.1 10^3/uL (0.0-0.1) 07/24/23 04:41 Nucleated RBC % (auto) 0 % 07/24/23 04:41 Nucleated RBCs # 0.0 /100WBC 07/24/23 04:41 APTT 32.1 SECONDS (23.9-36.7) D 07/23/23 14:20 Sodium 138 mmol/L (136-145) 07/24/23 04:41 Potassium 4.4 mmol/L (3.5-5.1) 07/24/23 04:41 Chloride 108 mmol/L (98-107) H 07/24/23 04:41 Carbon Dioxide 21 mmol/L (22-29) L 07/24/23 04:41 Anion Gap 13.4 (5-19) 07/24/23 04:41 BUN 15 mg/dL (8-23) 07/24/23 04:41 Creatinine 1.0 mg/dL (0.7-1.2) 07/24/23 04:41 GFR Calculation Not Reportable 07/24/23 04:41 Glucose 85 mg/dL (65-115) 07/24/23 04:41 POC Glucose 157 mg/dL (70-110) H 07/24/23 06:19 Calculated Osmolality 286 mOsm/kg (285-295) 07/24/23 04:41 Calcium 7.9 mg/dL (8.5-10.5) L 07/24/23 04:41 Vitals Last Vital Signs Temp 97.7 F 07/24/23 04:37 Pulse 66 07/24/23 07:38 Resp 13 07/24/23 04:37 BP 115/50 07/24/23 04:37 Pulse Ox 93 07/24/23 07:38 O2 Del Method Nasal Cannula 07/24/23 07:38 O2 Flow Rate 3 07/24/23 07:38 Discharge Plan Discharge Patient Disposition: Home Prescriptions: New clopidogrel 75 mg Tablet 75 mg PO DAILY Qty: 90 0RF aspirin 81 mg tablet,delayed release (DR/EC) 81 mg PO DAILY Qty: 90 1RF Continued albuterol sulfate 90 mcg/actuation HFA aerosol inhaler 1 puff inhalation QID PRN (Reason: Allergy Symptoms) alogliptin 25 mg tablet 25 mg PO DAILY cholecalciferol (vitamin D3) 50 mcg (2,000 unit) capsule 50 mcg PO DAILY cilostazol 100 mg tablet 100 mg PO BID ferrous gluconate 240 mg (27 mg iron) tablet 240 mg PO DAILY glipizide 10 mg tablet 10 mg PO TID ipratropium bromide 17 mcg/actuation HFA aerosol inhaler 1 puff inhalation QID levothyroxine 100 mcg capsule 100 mcg PO DAILY rosuvastatin 20 mg tablet 20 mg PO DAILY sertraline 100 mg tablet 100 mg PO DAILY omega 1-qrk-kqi-fish oil [Fish Oil] 300-1,000 mg capsule 1 cap PO BID Changed lisinopril 20 mg tablet 10 mg PO DAILY Qty: 90 1RF Held metformin 500 mg tablet 500 mg PO BID Hold Instructions: Resume on 07/04/23. Discontinued aspirin 325 mg tablet 325 mg PO DAILY metoprolol tartrate 50 mg tablet 50 mg PO BID No Action Jardiance 25 mg tablet 25 mg PO DAILY metoprolol tartrate 50 mg tablet 50 mg PO BID Discharge Orders: Discharge Order (Routine); Ordered 07/24/23 Ordered By: Jorge Novak Referrals: Shelby Stevens MD [Primary Care Provider] - (We have notified your physician's clinic of the need for a follow-up appointment to be scheduled. If you have not heard from them within the next 2 business days, please call them directly. You may also reach out to our custodial manager at [phone] and she can assist you.) Kalpana De La O FNP [Nurse Practitioner] - 07/30/23 10:30 am Diet: Diabetic Activity: Increase activity as tolerated Patient Instructions: Aspirin (By mouth), Clopidogrel (By mouth) (Plavix), Peripheral Vascular Stent Placement (DC), Post Angiogram Home Care Instructions Discharge Date/Time: 07/24/23 11:43 Discharge Attestations Time Spent in Discharge Care*: less than 30 min Quality Metrics Clinical Quality Measures [ No reported AMI, CVA or VTE this stay] Coding Level of Care Code Acute Code for Chg Fwd Diagnoses
[2023-07-24] MEDS: insulin lispro 100 unit/1 mL SUBCUT (08:47)
[2023-07-24] MEDS: atorvastatin 40 mg Tablet 80 MG PO (08:48)
[2023-07-24] MEDS: metoprolol tartrate 50 mg Tablet PO (08:48)
[2023-07-24] MEDS: aspirin 325 mg Tablet PO (08:48)
[2023-07-24] MEDS: clopidogrel 75 mg Tablet PO (08:49)
[2023-07-24] MEDS: cilostazol 100 mg Tablet PO (08:49)
[2023-07-24] MEDS: sertraline 100 mg Tablet PO (08:49)
[2023-07-24] MEDS: lisinopril 20 mg Tablet PO (08:49)
--- NOTE | 2023-07-24 09:27 | PC.CHAP ---
Pastoral Care Encounter/Spiritual Assessment Type of Contact [] Declined roll bucker visit [] Patient/Family/Request visit [] Outpatient visit [] Follow-up visit [] Physician referral [] Code/Alert [x] Routine visit [] Staff referral [] Actively dying [] Patient sleeping [] Family support [] [] Out of room [] Palliative care [] [] Receiving care in room [] Pre-surgical visit [] Trauma [] Long length of stay [] ICU visit [] Other: Relational/Emotional Strength [x] Patient feels connected with others/family/visitors/staff [] Distress [] Loneliness/isolation [] Abandonment Spirituality of Patient [x] Person of [place]ie [] Attends Pentecostalism of their [place] [x] Believes in Prayer [] Reads Bible or Restoration materials [] There are Spiritual issues to be addressed Electrical Accessories Assembler Interventions [x] Prayer [x] Active listening [] Non-anxious presence [x] Spiritual/emotional support [] Crisis/trauma care [] Spiritual counseling [] Bereavement support [] Provided bereavement packet [] Provided Bible/devotional materials [] Provided toy/stuffed animal, coloring book to patient or family member [] Provided Communion [] Anointing/[place] [] Salvation [x] Completed spiritual assessment [] Other: Impact on Illness or Injury [] Angry [] Fearful [] Anxious [] Often cries [] Exhaustion [] Unable to work [] Unable to attend episcopal [] Unable to walk/stand [] Unable to read [] Unable to drive [] Unable to eat/drink [] Unable to sleep [] Unable to be with family [] Patient intubated [] Other: Summary Time spent with patient 5 min
[2023-07-25 07:19] LABS: Glucose Point of Care 106 mg/dL (70-110)
== END 2023-07-24 11:43 | disposition home or self-care (01) ==
LOC: CCL 09:21 → CSU 16:09
PROVIDERS: PCP Family Medicine; Visit Provider Internal Medicine
DX: I70.223 Atherosclerosis of native arteries of extremities with rest pain, bilateral legs (principal); E11.9 Type 2 diabetes mellitus without complications; Z79.84 Long term (current) use of oral hypoglycemic drugs; I10 Essential (primary) hypertension; Z79.82 Long term (current) use of aspirin; Z95.1 Presence of aortocoronary bypass graft; Z82.49 Family history of ischemic heart disease and other diseases of the circulatory system; F17.210 Nicotine dependence, cigarettes, uncomplicated
CPT/HCPCS: 36415; 36416; 75625; 76937; 80048; 82962; 85025; 85347; 85730; 96361; 96365; 96372; 96376; 99152; 99153; C1725; C1769; C1874; C1887; C1894; C9765; J1644; J1815; J2250; J3010; J7030; Q0163; Q9967

== ENCOUNTER → 2023-07-30 10:22 | Outpatient (BNVA) | payer OTHER, SELFPAY | PROVIDERS: PCP Family Medicine; Visit Provider Nurse Practitioner Family | DX: I73.9 Peripheral vascular disease, unspecified (principal); E11.9 Type 2 diabetes mellitus without complications; Z79.84 Long term (current) use of oral hypoglycemic drugs | CPT/HCPCS: 36415; 80048; 85025; 85610; 99214 ==

== ENCOUNTER → 2023-11-06 15:30 | Outpatient (BNVA) | payer OTHER, SELFPAY | PROVIDERS: PCP Family Medicine; Visit Provider Internal Medicine | DX: I73.9 Peripheral vascular disease, unspecified (principal); Z95.1 Presence of aortocoronary bypass graft; E11.9 Type 2 diabetes mellitus without complications; F17.210 Nicotine dependence, cigarettes, uncomplicated; Z79.84 Long term (current) use of oral hypoglycemic drugs | CPT/HCPCS: 99214 ==

== ENCOUNTER → 2024-03-04 15:08 | Outpatient (BNVA) | payer OTHER, SELFPAY | PROVIDERS: PCP Family Medicine; Visit Provider Internal Medicine | DX: E11.51 Type 2 diabetes mellitus with diabetic peripheral angiopathy without gangrene (principal); Z79.84 Long term (current) use of oral hypoglycemic drugs; Z95.1 Presence of aortocoronary bypass graft; E11.621 Type 2 diabetes mellitus with foot ulcer; L97.519 Non-pressure chronic ulcer of other part of right foot with unspecified severity | CPT/HCPCS: 99214 ==

== ENCOUNTER 2024-03-10 07:22 | Outpatient (CLI) | payer MEDICARE, OTHER, SELFPAY ==
[2024-03-10 08:24] LABS: Basophils % 0.7 %; Eosinophils # 0.1 10^3/uL (0.0-0.8); Eosinophils % 2.4 %; Hematocrit 44.3 % (37-53); Lymphocytes # 0.9 10^3/uL (0.8-4.8); Lymphocytes % 16.4 %; Mean Corpuscular HGB Conc 32.3 g/dL (30-55); Mean Corpuscular Hemoglobin 30.8 pg (27-33); Mean Corpuscular Volume 95.5 fl (82-101); Mean Platelet Volume 9.6 fL (7.4-10.4); Monocytes # 0.6 10^3/uL (0.2-0.9); Monocytes % 11.7 %; Neutrophils # 3.67 10^3/uL (1.8-7.7); Neutrophils % 68.4 %; Nucleated Red Blood Cells % 0 %; Platelet Count 204 10^3/cmm (157-399); Red Blood Count 4.64 10^6/uL (3.85-5.65); Red Cell Distribution Width 13.9 % (12.1-15.1); White Blood Count 5.37 10^3/uL (3.29-11.43)
--- NOTE | 2024-03-10 08:30 | XACV_ITS ---
Ht: 175 cm Wt: 88 kg BSA: 2.08 m2 Any Known Allergies: Penicillins Gender: Male : 1945 Exam Type: Invasive Peripheral Vascular Procedure(s): Procedure Description: Peripheral Cath Diagnostic Procedure Procedure Description: Abdominal aortic angiography Procedure Description: Lower extremities' angiography Exam Priority: Routine Abdominal Diagnostic Findings Distal abdominal aorta is patent. 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 Right lower extremity findings: Right common iliac artery has a patent prior stent. Mild in-stent restenosis. Confirmed with checking pressure gradient across the stent and no difference seen. Right external iliac artery is patent. Right internal iliac artery is patent. Right common femoral artery is patent. Right profunda artery is patent. Right SFA has diffuse moderate to severe calcified disease. Right popliteal artery is totally occluded. Collaterals reconstitute below the knee vasculature at distal popliteal artery right above takeoff of anterior tibial artery. Diffuse disease of anterior tibial artery and peroneal artery. 2 vessel runoff to foot with these 2 vessels. Posterior tibial artery is occluded.. Conclusions Severe peripheral artery disease of right lower extremity specially at and below the knee. Blood flow mainly via collaterals. Recommendations Given patient's chronic limb threatening ischemia and ulcers on the foot, we will refer to vascular surgery to assess different options. With limited bailout options in case of complications (lack of PT access, AT access also limited), decision made to refer patient for vascular surgery opinion about high risk intervention vs medical therapy. Hemodynamic Data Phase:Rest AO : 114.0 / 48.0 ( 71.0 ) @ 10:47:00 AM 104.0 / 41.0 ( 65.0 ) @ 10:58:00 AM 103.0 / 44.0 ( 66.0 ) @ 10:58:00 AM Access Site Site: Left Femoral artery Sheath Size: 6 Fr Hemost... Method: Manual Compression Hemost... Success: Successful Procedure Details Findings Procedure Consent Obtained. Pre-Procedure Time Out. Identified patient by full name and date of as verbalized by the patient/guarantor. Does the consent match the physician's order: Yes. Accurate & Complete Informed Consent: Yes. Inpatient/Outpatient History & Physical on Chart: Yes. If H&P is completed, is and addenduem needed: No; If yes, is the addendum complete: N/A. Visualize and Verify Site with Patient/Guarantor: N/A. Relevant Radiology Images available: Yes. The risks, benefits, and alternatives of sedation and/or procedure were discussed by physician. The patient agrees to continue. Procedure started. Correct patient, site and procedure confirmed by cath team. Current diagnosis: Lifestyle limiting claudication, PAD. PERRLA. Strong, equal hand dry box tender bilaterally. Lungs clear x 5 lobes. IV Site on Arrival: 20 gauge in the left forearm. IV Fluids: 0.9% NaCl at 75ml/hr. 0 mL infused prior to labview programmer. Pre Procedural Pulses: bilateral dorsalis pedis was Doppled. Pre Procedural Pulses: bilateral posterior tibial was Doppled. Oxygen started at 2liters/min via nasal canula. bilateral groins was prepped with chloroprep then draped in the usual sterile fashion. Physician notified. Baseline sample Acquired. HR: 75 BPM. Physician arrived. Physician scrubbed in. Time out performed with cath team. Ultrasound obtained to assist with arterial access. Lidocaine 1% infiltrated to the left groin. Arterial access obtained with micropuncture set. A 5Fr UF catheter in over wire. Glidewire in through Uf catheter. Glidewire out. Abdominal aortogram performed in AP @ 10 mL/sec for a total of 30 mL. Abdominal aortogram DSA performed in AP @ 10 mL/sec for a total of 20 mL to better visualize iliac stent. Glidewire in through UF catheter. UF catheter advaned to right external iliac. Glidewire out. DSA imaging performed right popliteal to better visualize distal vessels. DSA imaging performed right popliteal to better visualize distal vessels. Pressures obtained across common iliac to assess gradient. DSA imaging performed to better visualize iliacs. UF pulled back into aorta. DSA imaging performed to better visualize vessels to right foot. Uf catheter out over standard wire. A Left femoral angiogram was performed to determine safe placement of closure device. Post Procedure: Pulses reassessed and unchanged. PERRLA. Strong, equal hand dry box tender bilaterally. No VTE prophylaxis required. Medication's Wasted: Lidocaine 1% = 10 mL. Medication's Wasted: Heparin = 1000 units. Medication's Wasted: Other = Fentanyl 50mcg, Versed 1mg. Total IV fluids: 55 mL. Post-op diagnosis: Severe PAD. Complications: None. Estimated blood loss: 5mL-10mL. Responsiveness - Normal response to verbal stimuli; alert and oriented, PERRLA. Airway - Unaffected, no intervention required; spontaneous ventilation. Circulation: W/N/L, pulses unchanged. Nausea/Vomiting: No. A Manual Compression was successful obtaining hemostatsis at the Left Femoral artery insertion site. Procedure completed. Patient transferred by bed to 1st floor. Vital chart was stopped. Procedure Medications Start: 9:28 AM Stop: 9:28 AM Medication: Fentanyl Amount: 25 mcg Route: I.V. Start: 9:35 AM Stop: 9:35 AM Medication: Versed Amount: 1 mg Route: I.V. Start: 9:45 AM Stop: 9:45 AM Medication: Fentanyl Amount: 25 mcg Route: I.V. I, the attending physician, have reviewed and verified all procedure medications. Yes, all medications given per verbal order History/Risk Factors Hypertension: No Dyslipidemia: No Peripheral Arterial Disease (PAD): Yes Obesity: No Renal Disease: No Tobacco Use: Former Prior Interventions PCI: Yes CABG: Yes Valve Surgery: No Report Signatures Finalized by Jorge Novak MD on 03/11/2024 05:20 PM
[2024-03-10 08:39] LABS: Anion Gap 14.7 (5-19); Blood Urea Nitrogen 9 mg/dL (8-23); Calcium 9.1 mg/dL (8.5-10.5); Carbon Dioxide 23 mmol/L (22-29); Chloride 107 mmol/L (98-107); Glucose 143 mg/dL (65-115); Osmolality Calculated 293 mOsm/kg (285-295); Potassium 3.7 mmol/L (3.5-5.1); Sodium 141 mmol/L (136-145)
[2024-03-10 08:40] VITALS: BP 97/62; PULSE 79; RESP 18; O2SAT 95; BMI 28.5
[2024-03-10] MEDS: diphenhydrAMINE 50 mg Capsule PO (08:45)
--- NOTE | 2024-03-10 09:35 | P.HPUD_ITS ---
Surgery/Procedure H&P Update DATE OF PROCEDURE: March 10, 2024 DATE H&P PERFORMED: 03/04/24 H&P UPDATE INFORMATION: I have reviewed H&P completed within last 30 days, I have examined patient prior to procedure and No changes to prior documentation PREOP DIAGNOSIS: Chronic limb threatening ischemia PRIMARY INDICATION FOR PROCEDURE: Chronic limb threatening ischemia PLANNED PROCEDURE: Operation Date: 03/10/24 08:30 Proposed Procedures p Peripheral Diagnostic 59801, I73.9(Not Applicable) - Jorge Novak M.D Possible intervention PATIENT REASSESSED PRIOR TO SEDATION, WITH NO CHANGE NOTED: Yes PHYSICAL EXAM: alert, oriented x 3, clear to auscultation bilaterally and regular rate & rhythm AIRWAY EVAL/ANESTHESIA PLAN: normal airway, ASA III, Risks, benefits & alternatives of sedation and/or procedure discussed and Patient agrees to co ntinue as planned ADDITIONAL INFORMATION: Moderate sedation
[2024-03-10 11:13] VITALS: BP 102/63; PULSE 64; RESP 19; TEMP 36.6; O2SAT 91
--- NOTE | 2024-03-10 11:18 | PC.NURSE ---
Patient arrived from blood bank laboratory technologist via bed. Report received from WALLACE Rosas. At bedside this nurse and WALLACE Adame looked at patients Left groin incision. There is no hematoma or bleeding notable. Patient is sedated, will arouse with verbal stimulation but dozes back to sleep shortly after. Patient is requiring a decent amount of oxygen but reportedly does not wear oxygen at home. Nurse will continue to monitor this patient q15m and report findings necessary.
[2024-03-10 15:13] VITALS: BP 104/62; PULSE 73; RESP 20; TEMP 36.6; O2SAT 92
[2024-03-10 16:13] VITALS: O2SAT 87; O2SAT 93
--- NOTE | 2024-03-10 18:21 | PC.NURSE ---
Patient qualified for 3L NC. However, patient and family refused oxygen. Reason for refusal is that patient is a current smoker and is not willing to quit. Family endorses that patient also gets confused at times and they do not think that he will remove oxygen prior to smoking in which poses a risk. Patient has been discharged. Education provided to patient and family. Iv removed. All belongings sent with patient. Vitals stable upon departure.
== END 2024-03-10 18:00 | disposition home or self-care (01) ==
LOC: CCL 07:23 → CSU 11:11
PROVIDERS: PCP Family Medicine; Visit Provider Internal Medicine
DX: I70.221 Atherosclerosis of native arteries of extremities with rest pain, right leg (principal); Z87.891 Personal history of nicotine dependence; I25.10 Atherosclerotic heart disease of native coronary artery without angina pectoris; Z95.1 Presence of aortocoronary bypass graft; Z79.84 Long term (current) use of oral hypoglycemic drugs; E11.621 Type 2 diabetes mellitus with foot ulcer
CPT/HCPCS: 36415; 75625; 75710; 80048; 85025; 94760; 96365; 96374; 96375; 99152; 99153; C1769; C1887; J1644; J2250; J3010; J7030; Q0163; Q9967